=== PATIENT | female | born 1955 | race Two or more races ===

== ENCOUNTER 2019-06-05 11:36 | Inpatient (IN) | payer BC, OTHER ==
[~2019-06-05] VITALS: Ht 160 cm; Wt 91.6 kg
[2019-06-05] MEDS ORDERED: cloNIDine HCL 0.1 MG TAB ONE (11:51)
[2019-06-05] MEDS ORDERED: cloNIDine HCL 0.1 MG TAB PO ONE ×2 (11:54→16:30)
[2019-06-05 12:51] LABS: Urine WBC None Seen /hpf (0 - 5)
[2019-06-05 13:12] LABS: Basophils # (auto) 0 uL; Basophils % (auto) 0.7 % (0.0-2.0); Eosinophils # (auto) 0.1 uL; Eosinophils % (auto) 2.3 % (0.0-7.0); Hematocrit 44.2 % (36.0-46.0); Hemoglobin 14.3 g/dL (12.2-16.2); Lymphocytes # (auto) 1.2 uL; Lymphocytes % (auto) 22.3 % (10.0-50.0); Mean Corpuscular Hemoglobin 28.3 pg (28.0-32.0); Mean Corpuscular Hgb Conc. 32.4 g/dL (32.0-36.0); Mean Corpuscular Volume 87.3 fL (80.0-100.0); Monocytes # (auto) 0.5 uL; Monocytes % (auto) 10.1 % (0.0-12.0); Neutrophils # (auto) 3.5 uL; Neutrophils % (auto) 64.6 % (37.0-80.0); Nucleated Red Blood Cells % 0.1 %; Platelet Count (auto) 210 10^3/uL (140-450); Red Blood Cells 5.06 10^6/uL (4.0-5.20); Red Cell Distribution Width 15.4 % (11.8-14.3); White Blood Cell 5.4 10^3/uL (4.4-10.8)
[2019-06-05 13:20] LABS: Urine Bacteria NONE SEEN /hpf (None Seen); Urine Blood Negative /uL (Negative); Urine Specific Gravity 1.019 (1.001-1.035)
[2019-06-05 13:22] LABS: Alanine Aminotransferase 40 U/L (13-56); Albumin 3.4 g/dL (3.4-5.0); Anion Gap 6 (5-15); Blood Urea Nitrogen 13 mg/dL (7-18); Calcium 8.7 mg/dL (8.5-10.1); Carbon Dioxide 25 mmol/L (21-32); Chloride 110 mmol/L (98-107); Glucose 98 mg/dL (74-106); Magnesium 2.5 mg/dL (1.6-2.6); Potassium 3.8 mmol/L (3.5-5.1); Sodium 141 mmol/L (136-145)
[2019-06-05 13:31] LABS: Alkaline Phosphatase 99 U/L (45-117); Aspartate Aminotransferase 28 U/L (15-37); BUN/Creatinine Ratio 15.9; Bilirubin, Total 0.6 mg/dL (0.2-1.0); GFR African American 91 mL/min; GFR Non-African American 75 mL/min; Total Protein 7.4 g/dL (6.4-8.2)
[2019-06-05] MEDS ORDERED: SODIUM CHLORIDE 0.9% 1,000 ML IV ONE (16:00)
[2019-06-05 16:48] LABS: INR < 0.93 (0.9-1.15); Partial Thromboplastin Time 24.5 sec (23.64-32.05)
[2019-06-05] MEDS ORDERED: ONDANSETRON HCL 4 MG/2 ML VIAL IV PRN (18:00)
[2019-06-05] MEDS ORDERED: ENALAPRILAT 1.25 MG/ML-1ML VIAL IV PRN (18:00)
[2019-06-05] MEDS ORDERED: DOCUSATE SOD 100 MG CAP PO PRN (18:00)
[2019-06-05] MEDS ORDERED: ACETAMINOPHEN 500 MG TAB PO PRN (18:00)
[2019-06-05] MEDS ORDERED: NITROGLYCERIN 0.4 MG SL TAB SL PRN (18:00)
[2019-06-05] MEDS ORDERED: HYDROcodone-ACET 5/325MG TAB PO PRN (18:00)
[2019-06-05] MEDS ORDERED: MORPHINE SULF INJ 2 MG/ML SYRINGE 1ML IV PRN ×2 (18:00)
[2019-06-05] MEDS: hydrALAZINE HCL 25 MG TAB PO SCH ×2 (19:57→22:24)
[2019-06-05] MEDS: LISINOPRIL 20 MG TAB PO SCH ×2 (19:57→22:25)
[2019-06-05 20:45] VITALS: BP 124/76
--- NOTE | 2019-06-05 20:45 | NUR ---
Telemetry admit from ER Patient admitted to Telemetry unit and oriented to primary RN, unit, room, bed, and unit policies regarding patient care and visiting hours. Patient now on continuous telemetry monitoring, tele box HC-40 and telemetry reading on arrival to unit is sinus rhythm in the 70s. Bed is in lowest position and locked. Call light within reach. Board updated. Patient weighed by bedscale and encouraged to call if they need something. All questions and concerns addressed, patient verbalized understanding.
[2019-06-05 22:00] VITALS: BP 124/70
--- NOTE | 2019-06-05 22:48 | NUR ---
Patient states that she has a document signed by a notary at home which is meant to ensure that she is DNR. Per Patient, she does not know if she can bring this document in. Will endorse to day shift to notify AM Hospitalist. Patient is not actively dying.
[2019-06-06] MEDS ORDERED: LEV100T PO (01:14)
[2019-06-06] MEDS ORDERED: LISI-283 PO (01:14)
[2019-06-06] MEDS ORDERED: PROG200C6 PO (01:15)
[2019-06-06 04:56] VITALS: BP 96/67
[2019-06-06] MEDS: hydrALAZINE HCL 25 MG TAB PO SCH ×2 (05:25→14:00)
[2019-06-06 09:00] VITALS: BP 115/85
[2019-06-06] MEDS ORDERED: FAMOTIDINE 20 MG TAB PO SCH (10:00)
[2019-06-06] MEDS: LISINOPRIL 20 MG TAB PO SCH (10:25)
[2019-06-06] MEDS ORDERED: LORazepam 2MG/ML-1ML VIAL IV ONE (14:00)
[2019-06-06 14:24] VITALS: BP 132/72
[2019-06-06] MEDS ORDERED: LISI-646 PO (14:49)
[2019-06-06] MEDS ORDERED: CLON0.1T PO (14:49)
--- NOTE | 2019-06-06 16:05 | NUR ---
I faxed home health order to [facility].
--- NOTE | 2019-06-06 16:18 | NUR ---
Spoke With Shawn [employer] Manager From [facility] Shawn stated she is aware of home health order and is setting up care for patient.
[2019-06-06 17:12] VITALS: BP 121/55
--- NOTE | 2019-06-06 17:27 | NUR ---
Paged Dr Brown Paged Dr Brown to inform him that MRI results are in and awaiting his clearance for discharge. [facility] Manager stated they "do not page the doctors after 5pm, but we can try". Awaiting call back.
--- NOTE | 2019-06-06 17:34 | NUR ---
Per consult for home health safety evaluation. Contacted and faxed medical records to [facility] and [facility]. [facility] do not take Pt Insurance. Contacted [facility] and they are reviewing referral I will follow up tomorrow. Informed DAPHNEY Jeter Pt is able to go home. Addendum: 06/06/19 at 1742 by JOSE CAMERON Amended: Links added. Addendum: 06/07/19 at 0832 by JOSE PACHECO Contacted [facility] Ph: ) for an update on acceptance. Khanh Aponte from [facility] Pt has been accepted and service to start within 48hrs upon d/c.
[2019-06-06 18:47] VITALS: BP 121/55
--- NOTE | 2019-06-06 19:06 | NUR ---
End of Shift Endorsed care and pending discharge to [facility] nurse Ayad. Awaiting discharge clearance from Dr Brown. Patient sitting up in bed, shows no signs of distress at this time. Bed in lowest locked position, side rails up x2 and call light within reach.
--- NOTE | 2019-06-06 20:12 | NUR ---
MD Brown in to see patient.
--- NOTE | 2019-06-06 21:29 | NUR ---
Discharge instructions given as ordered. Encourage to follow up with PMD as instructed. All questions and concerns addressed. Patient verbalized understanding. Medication reconciliation form completed and copy given to patient. IV removed with catheter intact, pressure dressing applied. Telemetry unit returned to [facility]. Patient taken to vehicle via wheelchair with all personal belongings, accompanied by staff and family member. No distress noted at time of departure.
[2019-06-06 21:30] VITALS: BP 164/105
== END 2019-06-06 21:29 | disposition home health service (06) | DRG 305 ==
LOC: ER 11:36 → TELE 11:37 → TELE-WESTW 20:42
PROVIDERS: ADMIT Nurse Practitioner Acute Care; ATTEND Internal Medicine
DX: I16.9 Hypertensive crisis, unspecified (principal); G45.9 Transient cerebral ischemic attack, unspecified; I11.9 Hypertensive heart disease without heart failure; F17.200 Nicotine dependence, unspecified, uncomplicated; E66.9 Obesity, unspecified; Z68.35 Body mass index [BMI] 35.0-35.9, adult; F32.9 Major depressive disorder, single episode, unspecified; F41.9 Anxiety disorder, unspecified; E03.9 Hypothyroidism, unspecified; H54.7 Unspecified visual loss; Z79.899 Other long term (current) drug therapy; Z82.49 Family history of ischemic heart disease and other diseases of the circulatory system; Z91.14 Patient's other noncompliance with medication regimen; Z98.84 Bariatric surgery status; Z90.49 Acquired absence of other specified parts of digestive tract
CPT/HCPCS: 36415; 70450; 70551; 71046; 80053; 81001; 83735; 83880; 84443; 84484; 85025; 85610; 85730; 93005; 93306; 94761; 96360; G0378

== ENCOUNTER 2019-11-11 20:37 | Emergency (ER) | payer OTHER, BC ==
[~2019-11-11] VITALS: Ht 160 cm; Wt 88.5 kg
[~2019-11-11 20:37] MED LIST: CLON0.1T PO; LEV100T PO; LISI-646 PO; PROG1CAP2 PO
[2019-11-11] MEDS ORDERED: IBUPROFEN 600 MG TAB PO ONE (21:15)
[2019-11-12 00:20] VITALS: BP 122/84
== END 2019-11-12 00:45 | disposition home or self-care (01) ==
LOC: ER 20:38
DX: R51 Headache (principal); M54.2 Cervicalgia; I10 Essential (primary) hypertension; Z79.899 Other long term (current) drug therapy; V89.2XXA Person injured in unspecified motor-vehicle accident, traffic, initial encounter; Y93.I9 Activity, other involving external motion; Y92.410 Unspecified street and highway as the place of occurrence of the external cause; Y99.8 Other external cause status
CPT/HCPCS: 70450; 72125; 73110

== ENCOUNTER 2020-01-22 12:01 | Emergency (ER) | payer BC ==
[~2020-01-22] VITALS: Ht 160 cm; Wt 88.5 kg
[2020-01-22 12:16] VITALS: BP 124/88
[2020-01-22] MEDS ORDERED: ACETAMINOPHEN 500 MG TAB PO ONE (13:30)
== END 2020-01-22 13:49 | disposition home or self-care (01) ==
LOC: ER 12:01
DX: S16.1XXA Strain of muscle, fascia and tendon at neck level, initial encounter (principal); S00.83XA Contusion of other part of head, initial encounter; I10 Essential (primary) hypertension; Z86.73 Personal history of transient ischemic attack (TIA), and cerebral infarction without residual deficits; Z79.899 Other long term (current) drug therapy; W18.39XA Other fall on same level, initial encounter; Y93.01 Activity, walking, marching and hiking; Y92.89 Other specified places as the place of occurrence of the external cause; Y99.8 Other external cause status
CPT/HCPCS: 70450

== ENCOUNTER 2021-05-20 15:06 | Emergency (ER) | payer BC ==
[~2021-05-20] VITALS: Ht 160 cm; Wt 90.7 kg
[~2021-05-20 15:06] MED LIST changes: -LISI-646 PO; +LISI20TA28 PO
[2021-05-20 16:30] VITALS: BP 111/77
[2021-05-20] MEDS ORDERED: KETOROLAC TROMETH 60MG/2ML VIAL IM ONE (17:00)
== END 2021-05-20 17:09 | disposition home or self-care (01) ==
LOC: ER 15:06
DX: G44.209 Tension-type headache, unspecified, not intractable (principal); I10 Essential (primary) hypertension; Z90.89 Acquired absence of other organs
CPT/HCPCS: 70450; 96372; 99284; J1885